=== PATIENT | female | born 1955 | race Caucasian/White ===

== ENCOUNTER → 2023-09-02 | Outpatient (CLI) | payer MEDICARE ==
--- NOTE | 2023-09-02 15:48 | P.SLEEP ---
History of Present Illness DATE: 09/02/2023 CONSULTATION/NEW PATIENT EVALUATION HISTORY OF PRESENT ILLNESS/SLEEP-WAKE EVALUATION: 68-year-old lady had been evaluated to sleep center for possible obstructive sleep apnea hypopnea syndrome had been evaluated in the sleep center for possible obstructive sleep apnea hypopnea syndrome. SLEEP SCHEDULE: Usually sleep schedule from 9 PM to 7 AM on weekdays and from 11 PM to 8 AM on weekend. FALLING ASLEEP: Sometimes patient has problems with falling asleep, has TV set and bedroom. DURING SLEEP: Patient usually sleeps on the side position with loud snoring and witnessed episodes of stop breathing during the sleep by her . Patient wakes up from sleep 4 times with nocturia. Positive history of grinding teeth and restless legs symptoms. No history of hypnogogical hallucinations, sleep paralysis, or cataplexy. DURING THE DAY/WAKE STATE: In the morning patient wake up tired, has episodes of depression and anxiety. [place] sleepiness scale is 5. Patient may take 1 nap at 3 PM. PAST MEDICAL HISTORY: Arthritis, hyperlipidemia, depression. PAST SURGICAL HISTORY: None. MEDICATIONS: None. SOCIAL HISTORY: Positive history of smoking in the past, quit 20 years ago, alcohol consumption beer daily. FAMILY HISTORY: Diabetes. REVIEW OF SYSTEMS: Snoring, multiple awakenings from sleep. No fevers. No double vision. No recent chest pain. No shortness of breath. No abdominal pain. No bleeding episodes. No blood in urine. No seizure episodes. PHYSICAL EXAMINATION: GENERAL: A pleasant patient without any distress. VITAL SIGNS: BP 143/84 , HR 70 , RR 12 , weight 176.0 pounds, height 5 foot 5.5 inches, body mass index 28.8 . HEENT: PERRLA, EOMI. Evaluation of oropharynx showed tongue protrudes midline, low position of soft palate Mallampati 4. NECK: Supple. No JVD. Thyroid is not palpable. 14-3/4 inches in circumference. LUNGS: Clear to percussion and to auscultation. Good air exchange. No wheezing or rhonchi. HEART: S1, S2 regular. No murmurs, gallops or rubs. ABDOMEN: Soft and nontender. Bowel sounds are present. No organomegaly appreciated. EXTREMITIES: No clubbing or cyanosis. UTILITY AGENT: Awake, alert, and oriented x3. Cranial nerves 2 to 7 intact. There is no fasciculation or atrophy noted. No focal deficits observed. ASSESSMENT: 1. Loud snoring, witnessed episodes of stop breathing during the sleep, multiple awakenings from sleep with nocturia, extremely low position of soft palate Mallampati 4, sleepiness patient takes nap. Obstructive sleep apnea hypopnea syndrome. 2. Overweight, BMI 28.8. 3. History of arthritis. 4. History of hyperlipidemia. 5 history of depression episodes. PLAN: 1. Polysomnography for evaluation of patient's breathing during sleep. 2. Following plan after reading sleep study. 3. Preferable position during sleep on the side. 4. No driving if patient feels any sleepiness. Patient is aware of civil and c riminal liability for unsafe driving. 5. Sleep hygiene with regular sleep time for at least 7.5-8 hours. 6. Watching weight. Thank you very much for referring this patient for consultation. Sincerely, Apolinar Erazo MD, PhD, FAASM. Diplomat of [employer], Sleep Medicine Board by [employer] Bus Gre[facility] [place] Sleep Note - Sleep Note Sleep Note: Temperature: Pulse Rate: Respiratory Rate: Blood Pressure: SpO2: Height: Weight: BMI: Neck Circumference:
== END ==
LOC: 3 N SLEEP 15:13
PROVIDERS: ATTEND Internal Medicine
DX: G47.33 Obstructive sleep apnea (adult) (pediatric) (principal); E66.3 Overweight; M19.90 Unspecified osteoarthritis, unspecified site; E78.5 Hyperlipidemia, unspecified; F32.A Depression, unspecified; Z68.28 Body mass index [BMI] 28.0-28.9, adult; Z87.891 Personal history of nicotine dependence
CPT/HCPCS: 99202

== ENCOUNTER → 2023-11-05 | Outpatient (CLI) | payer MEDICARE ==
--- NOTE | 2023-11-05 09:16 | MR ---
EXAMINATION TYPE: MR brain wo/w con DATE OF EXAM: 11/05/2023 6:57 AM CLINICAL INDICATION:Female, 68 years old with history of S09.90XA UNSPECIFIED INJURY OF HEAD, INITIAL ENCOU; PHH, Fall, head injury. COMPARISON: TECHNIQUE: Multi planar, multi sequence imaging was performed through the brain including: T1, T2, In version recovery, susceptibility weighted imaging and gradient echo imaging and Diffusion weighted im aging. The patient was then given intravenous contrast and multi planar, T1 fat-saturation images wer e obtained. IV Contrast: 7.5 cc Gadavist FINDINGS: The lucia-white junctions, ventricular system, basal cisterns appear unremarkable. Diffusion-weighted imaging shows no evidence of restricted diffusion to suggest acute/subacute infarct. Intracranial ar terial flow voids are maintained. Midline structures show no abnormality. Scattered foci of high T2 s ignal intensity are seen within the periventricular white matter. The susceptibility weighted images do not reveal any evidence for micro-hemorrhage. After administration of gadolinium, no abnormal enha ncement is seen. The bone marrow signal is within normal limits. Paranasal sinuses and mastoid air cells: No significant paranasal sinus disease. Visualized orbits: Orbital contents are intact. IMPRESSION: 1. No evidence of intracranial mass, acute/subacute infarct, or abnormal enhancement. 2. Nonspecific white matter changes, likely related to small vessel ischemic disease.
== END | disposition home or self-care (01) ==
LOC: RADMRIMAIN 05:56
PROVIDERS: ATTEND Family Medicine
DX: G93.89 Other specified disorders of brain (principal); S09.90XA Unspecified injury of head, initial encounter; R40.20 Unspecified coma; H53.149 Visual discomfort, unspecified; X58.XXXA Exposure to other specified factors, initial encounter
CPT/HCPCS: 70553; A9585

== ENCOUNTER 2023-11-24 19:30 | Outpatient (CLI) | payer MEDICARE ==
--- NOTE | 2023-12-04 11:56 | P.PCN ---
Description of Procedure: POLYSOMNOGRAPHY REPORT PROCEDURE(S)/DATE(S): Polysomnography 11/24/2023 CLINICAL: Patient has been seen in the sleep center for evaluation of obstructive sleep apnea-hypopnea syndrome. Please see my consultation. Sleep study has been done for evaluation of patient breathing during the sleep. PROCEDURE: The standard montage for clinical polysomnography included the electroencephalogram, the electrooculogram, the mentalis surface electromyography and Lead II cardiography. The respiratory battery consisted of measurements of nasal/buccal air flow, pressure transducer measurements from nose, thoracic and/or abdominal effort and intercostal surface electromyography. Video monitoring has been done to check for any parasomnia events. Nocturnal oxyhemoglobin saturations were obtained by finger oximetry. Step-bueno titration with positive airway pressure was utilized to control the respiratory events, if necessary. RESULTS: During the diagnostic sleep study sleep efficiency was decreased to 70.7%. Latency to sleep onset was significantly prolonged to 64.0 min. Sleep architecture showed stage NI was increased to 12.0%, Delta sleep was absent 0%, REM sleep was slightly decreased to 16.8%. Respiratory channel showed 9 obstructive apneas, 0 mixed apneas, 0 central boiling tub operator eas, 13 hypopneas with lowest oxygen level 85%, oxygen level was below normal for 1 minute and 43 seconds. Total apnea hypopnea index was 4.2. Heart rate was in the range between 57 and 65, average 60. EMG showed 8.4 periodic limb movements per hour with 2.5 micro-arousals per hour. IMPRESSIONS: 1. Very minimal abnormalities of respiration in normal range by present criteria. 2. Very minimal periodic limb movements have been documented mostly on the second part of the night. 3. Long sleep latency and low sleep efficiency may indicate insomnia or first night adaptation response. Please see other impressions from consultation PLAN: 1. I will see patient for follow-up visit to explain results of the test and recommendations. 2. Sleep hygiene with regular time in bed for at least 7-1/2 hours. 3. Please check iron profile including ferritin level. Low level of iron may increase the risk for periodic limb movements. 4. No driving if feeling sleepiness. Thank you very much for allowing me to participate in the management of your patient. Sincerely, Apolinar Erazo MD, PhD, FAASM. Diplomat of [employer], Sleep Medicine Board by [employer] [facility] [place]
== END 2023-11-25 05:32 | disposition home or self-care (01) ==
LOC: 3 N SLEEP 19:30
PROVIDERS: ATTEND Internal Medicine
DX: G47.33 Obstructive sleep apnea (adult) (pediatric) (principal); G47.61 Periodic limb movement disorder; G47.11 Idiopathic hypersomnia with long sleep time
CPT/HCPCS: 95810

== ENCOUNTER → 2024-02-19 | Outpatient (CLI) | payer MEDICARE ==
[2024-02-19 14:55] VITALS: BP 127/81; PULSE 66; RESP 16; TEMP 97.3
--- NOTE | 2024-02-19 15:03 | P.PROGSL ---
Subjective DATE: 02/19/2024 FOLLOW UP VISIT. Patient returned to sleep center for follow-up visit discussed results of sleep study and following plan. During the sleep test very minimal abnormalities of respiration have been documented with apnea hypopnea index 4.2, which is on normal range by today's criteria. Very minimal periodic limb movements have bee n documented 8.4 times per hour with 2.5 mcg/h. Sleep efficiency was decreased to 70.7% and sleep latency was significantly prolonged to 64.0 minutes. . [place] sleepiness scale is 6, which is in normal range. MEDICATIONS: None During physical exam: GENERAL: A pleasant patient without any distress. VITAL SIGNS: Please see below. HEENT: PERRLA, EOMI. NECK: Supple. No JVD. LUNGS: Clear to percussion and to auscultation. Good air exchange. No wheezing or rhonchi. HEART: S1, S2 regular. ABDOMEN: Soft and nontender. EXTREMITIES: No clubbing or cyanosis. COLOR TESTER: Awake, alert, and oriented x3. No focal deficit. Impressions: 1. Loud snoring have been documented during the sleep study 2. No significant respiratory abnormalities during sleep test. 3. No significant leg movements during sleep study. 4. Long sleep latency, which may indicate insomnia, also could be secondary to first night adaptation response. 5. History of depression episodes. 6. History of hyperlipidemia. Plan: 1. I explained to the patient psychological techniques for treatment of possible insomnia including stimulus control, paradoxical intention, no watching clock. 2. Sleep hygiene with regular time in bed for at least 8 hours. 3. Precautions related to driving. No driving if feel any sleepiness. Patient is aware about civil and criminal liability for unsafe driving, promised to follow recommendations. 4. Preferable position during the sleep on the side. 5. I explained possibility for surgical treatment of snoring. Thank you very much for allowing me to participate in the management of your patient. Apolinar Erazo MD, PhD, FAASM. Diplomat of [employer], Sleep Medicine Board by [employer] Kier [facility] [place] Objective - Vital Signs Vital Signs: Vital Signs Temp 97.3 F L 02/19/24 14:44 Pulse 66 02/19/24 14:44 Resp 16 02/19/24 14:44 BP 127/81 02/19/24 14:44 Pulse Ox 99 06/05/24 14:44 FiO2 Intake & Output 02/18/24 02/19/24 02/19/24 18:59 06:59 18:59 Weight 76.204 kg
== END ==
LOC: 3 N SLEEP 14:37
PROVIDERS: ATTEND Internal Medicine
DX: R06.83 Snoring (principal); Z86.59 Personal history of other mental and behavioral disorders; Z86.39 Personal history of other endocrine, nutritional and metabolic disease
CPT/HCPCS: 99212

== ENCOUNTER → 2024-07-06 | Outpatient (CLI) | payer MEDICARE ==
[2024-07-06 15:27] LABS: INR 1.01 sec (0.93-1.11); Prothrombin Time 10.9 sec (9.9-11.9)
[2024-07-06 16:01] LABS: BUN/Creat Ratio 12.25 Ratio (12.00-20.00); Blood Urea Nitrogen 9.8 mg/dL (9.0-27.0); Calcium 9.2 mg/dL (8.7-10.3); Carbon Dioxide 22.7 mmol/L (21.6-31.8); Chloride 104 mmol/L (96-109); Glucose 100 mg/dL (70-110); Potassium 4.8 mmol/L (3.5-5.5); Sodium 137 mmol/L (135-145)
[2024-07-06 16:08] LABS: Basophils # (A) 0.03 X 10*3/uL (0.00-0.10); Basophils % (A) 0.7 %; Eosinophils # (A) 0.05 X 10*3/uL (0.04-0.35); Eosinophils % (A) 1.2 %; Lymphocytes # (A) 1.58 X 10*3/uL (0.90-5.00); Lymphocytes % (A) 37.8 %; MCH 29.2 pg (27.0-32.0); MCHC 32.6 g/dL (32.0-37.0); MCV 89.8 FL (80.0-97.0); Mean Platelet Volume 10.4 FL (9.5-12.2); Monocytes % (A) 9.6 %; NRBC Per 100 WBC 0 X 10*3/uL (0.00-0.01); Neutrophils # (A) 2.11 X 10*3/uL (1.80-7.70); Neutrophils % (A) 50.5 %; Platelet Count 269 X 10*3/uL (140-440); RBC 4.79 X 10*6/uL (4.10-5.20); RDW 13.5 % (11.5-14.5); WBC 4.18 X 10*3/uL (4.50-10.00)
== END | disposition home or self-care (01) ==
LOC: LABPAT 08:47
PROVIDERS: ATTEND Orthopaedic Surgery
CPT/HCPCS: 80048; 85025; 85610; 86850; 86900; 86901; 87070; 93005

== ENCOUNTER 2024-07-13 05:37 | Day surgery (SDC) | payer MEDICARE ==
[2024-07-08 11:21] VITALS: BMI 26.6
--- NOTE | 2024-07-12 22:29 | HP ---
HISTORY AND PHYSICAL DATE OF SURGERY: 07/13/2024. HISTORY OF PRESENT ILLNESS: Gisella Beltran is a 68-year-old patient seen with symptomatic left hip osteoarthritis. After having treatment options discussed, she elected to proceed with direct anterior left total hip arthroplasty. Consent regarding procedure was obtained. PAST MEDICAL HISTORY: Noncontributory. SURGICAL HISTORY: Noncontributory. DAILY MEDICATIONS: Motrin. ALLERGIES: None reported. SOCIAL HISTORY: She denies tobacco use. PHYSICAL EVALUATION OF THE LEFT HIP: She has diffuse tenderness about the hip girdle. Limited range of motion. Severe pain. Positive hip impingement sign. Straight-leg raise negative. Distal neurovascular exam is intact. IMAGING STUDIES: Radiographs of the left hip revealed severe osteoarthritic changes. IMPRESSION: Left hip osteoarthritis. PLAN: Direct anterior left total hip arthroplasty. MMODL / IJN: [id number] /
[~2024-07-13 05:37] MED LIST: TRANEXAMIC 1,000 MG/100ML-NACL 1,000 MG in SALINE 1 100ML.BAG IVPB PRN
[2024-07-13] MEDS: IV FLUID CONTINUATION 1,000 ML IV ONE ×2 (06:45→10:10)
[2024-07-13] MEDS: ACETAMINOPHEN TAB 500 MG TAB PO PRN (06:50)
[2024-07-13] MEDS: ONDANSETRON 4 MG/2 ML VIAL IVP ONE (06:50)
[2024-07-13] MEDS: LACTATED RINGERS 1,000 ML IV SCH (06:50)
[2024-07-13] MEDS: DEXAMETHASONE SOD PHOSPHATE 4 MG/ML 1 ML VIAL IV ONE (06:50)
[2024-07-13] MEDS: MELOXICAM 7.5 MG TAB PO PRN (06:50)
[2024-07-13] MEDS: fentaNYL (PF) 50 MCG/ML 2 ML AMP IVP PRN (06:53)
[2024-07-13] MEDS: MIDAZOLAM 2 MG/2 ML VIAL IV PRN (06:53)
[2024-07-13] MEDS ORDERED: SUCCINYLCHOLINE CHLORIDE 200 MG/10 ML VIAL IV ONE (07:25)
[2024-07-13] MEDS ORDERED: VECURONIUM 10 MG VIAL IV ONE (07:25)
[2024-07-13] MEDS ORDERED: MIDAZOLAM 2 MG/2 ML VIAL ONE (07:25)
[2024-07-13] MEDS ORDERED: GLYCOPYRROLATE 0.2 MG/ML 2 ML VIAL ONE (07:25)
[2024-07-13] MEDS ORDERED: fentaNYL (PF) 50 MCG/ML 2 ML AMP ONE (07:25)
[2024-07-13] MEDS ORDERED: TRANEXAMIC 1,000 MG/100ML-NACL PREMIX BAG ONE (07:25)
[2024-07-13] MEDS ORDERED: PROPOFOL 10 MG/ML 20 ML VIAL IV ONE (07:25)
[2024-07-13] MEDS ORDERED: HYDROmorphone (PF) 1 MG/ML ONE (07:25)
[2024-07-13] MEDS ORDERED: NEOSTIGMINE 1 MG/ML 10 ML VIAL ONE (07:25)
[2024-07-13] MEDS ORDERED: ROPIVACAINE 5 MG/ML 30 ML VIAL ONE (07:25)
[2024-07-13] MEDS: LACTATED RINGERS 1,000 ML IV ONE (08:45)
--- NOTE | 2024-07-13 09:07 | P.OP ---
Date of Procedure: 07/13/24 Preoperative Diagnosis: Left hip osteoarthritis Postoperative Diagnosis: Left hip osteoarthritis Procedure(s) Performed: Direct anterior left total hip arthroplasty Implants: 1. DePuy [place] 135 degree standard collared KA size 13 press-fit femoral stem 2. DePuy [place] 56 mm press-fit acetabular shell 3. DePuy [place] neutral polyethylene acetabular liner 36 mm ID 56 mm OD 4. Biolox delta ceramic femoral head +1.5 36 mm Anesthesia: GETA, regional (iPAQ block) Surgeon: Marcus Kim Surgical Specialist #1: Joaquin Grossman Estimated Blood Loss (ml): 45 Pathology: none sent Condition: stable Disposition: PACU Indications for Procedure: 68-year-old patient seen with symptomatic left hip osteoarthritis. After having treatment options discussed, she elected to proceed with direct anterior left total hip arthroplasty. Operative Findings: See description of procedure Description of Procedure: The patient was taken to the operative suite. Patient underwent a general anesthetic by the department of anesthesia. Patient was then transferred to the [place] table. Patient was given preoperative IV antibiotics and TXA. Both lower extremities were placed in standard leg spars. The hip was then prepped and draped in the normal sterile orthopedic fashion. A standard anterior incision was made beginning 3 cm lateral and 1 cm distal to the ASIS extending 10 cm. Dissection was then carried down through the subcutaneous soft tissues down to the fascia overlying the tensor fascia noman. An incision was now made through the fascia. Careful dissection was taken down exposing the tensor fascia noman muscle. A Cobra retractor was now placed along the medial femoral neck and a second one along the lateral femoral neck. The venous circumflex vessels were now identified, cauterized and clipped. We identified the anterior hip capsule. An incision was made through the hip capsule along the lateral border. I performed a partial anterior capsulectomy. Retractors were now placed around the femoral neck itself. A femoral neck cut was now made with a sagittal saw. It was completed with an osteotome at the lateral neck area. The femoral head was now removed without difficulty. The extremity was now rotated to 60 of external rotation. It was locked in position. Residual labrum was now debrided out. Serial reaming was performed of the acetabulum while Sumeet BAER assisted holding an anterior retractor for exposure. Once we reached the appropriate size and a trial was position and fit nicely. The appropriate size was now chosen opened and made available. It was introduced into the acetabulum without difficulty. The C-arm/fluoroscopy was now brought into the operative field. We made sure we had a true AP pelvic view. We now under direct C- arm/fluoroscopy introduced into the acetabular component with appropriate version and inclination. I held the cup in appropriate position well Sumeet BAER used a mallet to seat the acetabular component. I noted the component now to be well seated and stable. Acetabular cup introduce her was removed. The C-arm was pulled back. An appropriate liner was introduced and clicked into position. It was felt to be stable. At this point retractors were removed. The extremity was now placed into 140 external rotation with no traction. The leg was now dropped to the ground and adducted. Appropriate retractors were now positioned along the proximal femur. We also placed our femoral look into position. Additional capsular releasing was performed to gain access to the proximal femur. We now used a box osteotome. A canal finder was now utilized. Serial broaching was now performed with the assistance of Sumeet BAER tapping the broaches down with a mallet while held the broach in appropriate rotation and position. This was done until we reached the appropriate size with good overall rotational stability. Appropriate calcar planing was performed. A trial head/neck was placed into position. The hip was now reduced. The C- arm/fluoroscopy was brought back into the operative field. I obtained an AP pelvis demonstrating adequate leg length alignment. The trial components appeared adequately sized and positioned. The C-arm/fluoroscopy was pulled back. Retractors were repositioned and the hip was dislocated. The leg was again taken down to the ground and adducted. Appropriate retractors were repositioned as well as the femoral hook. All trial components were removed. The femoral implant was opened along with the femoral head. The femoral implant was introduced on the appropriate handle into our pre-broached area. I held the component position well Sumeet BAER used a mallet to seat the femoral component. The femoral component was now noted to be well seated and stable.. The femoral head was introduced with good positioning and fixation noted. Retractors were now removed. The hip was now reduced. There appeared be good positioning of the hip confirmed on intraoperative fluoroscopy. Spot films were obtained to document this. A second gram of TXA was given. Bipolar cautery had been utilized intermittently through the procedure for hemostasis. The wound was irrigated copiously with pulse lavage mechanical irrigation. The fascia was repaired with Vicryl suture. The subcutaneous soft tissues were repaired in layers with Vicryl suture. The skin was approximated with pernio/Dermabond. Sterile dressings were applied. Patient was then awakened, transferred to a bed and taken to recovery in stable condition. Sumeet BAER assisted with the complex procedure.
[2024-07-13] MEDS ORDERED: NALOXONE 0.4 MG/ML 1 ML VIAL IV PRN (09:08)
[2024-07-13] MEDS ORDERED: HYDROmorphone 0.5 MG/0.5 ML SYRINGE IVP PRN ×2 (09:08)
[2024-07-13] MEDS ORDERED: LACTATED RINGERS 1,000 ML IV ONE (09:08)
[2024-07-13] MEDS ORDERED: HYDROmorphone 1 MG/ML 1 ML SYRINGE IVP PRN (09:08)
[2024-07-13] MEDS ORDERED: HYDROcodone/APAP 5-325MG 1 EACH TAB PO PRN (09:08)
--- NOTE | 2024-07-13 09:18 | FL ---
EXAMINATION TYPE: FL guidance operating room, XR Hip Limited LT DATE OF EXAM: 07/13/2024 9:05 AM COMPARISON: Pre Operative Images if available both CT/MRI or plain film CLINICAL INDICATION: Female, 68 years old with history of Left Hip-Ant; TECHNIQUE: FL guidance operating room, XR Hip Limited LT, multiple fluoroscopic images provided for p rocedure. Total fluoroscopy time: 12 seconds Total submitted images to PACS: 3 DAP: 0.9345 mGym2 Gycm2 uGym2 cGycm2 or equivalent. FINDINGS: Fluoroscopic images during internal fixation/arthroplasty demonstrate fixation hardware in appropriat e position. Hardware appears intact. No immediate complication identified. IMPRESSION: 1. No evidence for intraoperative complication. 2. Please see the operative/procedural note for further details. [facility], , 07/13/2024 9:16 AM
[2024-07-13 09:32] VITALS: TEMP 97
[2024-07-13] MEDS: HYDROmorphone 0.5 MG/0.5 ML SYRINGE IVP PRN (09:36)
--- NOTE | 2024-07-13 10:03 | P.ANPRN ---
Procedure Note - Anesthesia - Nerve Block Performed Left Joe Single Time Out Performed: Yes Date of Procedure: 07/13/24 Procedure Start Time: 06:52 Procedure Stop Time: 06:59 Location of Patient: PreOp Indication: Acute Post-Operative Pain, Requested by Surgeon Sedation Type: Sedate with meaningful contact maintained Preparation: Sterile Prep Position: Supine Needle Types: Pajunk Needle Gauge: 21 Ultrasound used to visualize needle placement: Yes Ultrasound used to observe medication spread: Yes Injectate: 0.5% Ropivacaine (see comment for volume) (30 ml + 4 mg Dexamethas one) Blood Aspirated: No Pain Paresthesia on Injection Noted: No Resistance on Injection: Normal Image Stored and Saved: Yes Events: Uneventful and Well Tolerated
[2024-07-13 11:29] VITALS: RESP 16
[2024-07-13] MEDS: HYDROcodone/APAP 7.5-325MG 1 EACH TAB PO PRN (11:46)
[2024-07-13] MEDS: ONDANSETRON 4 MG/2 ML VIAL IVP PRN (13:07)
[2024-07-13 14:18] VITALS: BP 118/69; PULSE 66
== END 2024-07-13 14:47 | disposition home health service (06) ==
LOC: OR 05:37
PROVIDERS: ATTEND Orthopaedic Surgery
CPT/HCPCS: 64447; 73501